=== PATIENT | female | born 1940 | race Caucasian/White ===

== ENCOUNTER 2022-10-25 06:07 | Inpatient (IN) | payer OTHER ==
[~2022-10-25] VITALS: Ht 160 cm; Wt 60.0 kg
[~2022-10-25 06:07] MED LIST: ALL100T PO; ATOR-47 PO; CAR3125T OR; CLON0.1T PO; CYCL-837 PO; FENO134C PO; FURO1TAB33 PO; GABA300C10 PO; GLIP5TAB12 PO; HYDR-531 PO; LEVO75TA6 PO; MAGN400C2 PO; MELA5CAP PO; METR500T PO; NIFE1TAB30 PO; PROM25TA5 OR; PROM25TA5 PO; SACC1CAP3 PO; VIBE75TA PO; [UNRECOGNIZED DRUG - CODE] PO
[2022-10-25] MEDS ORDERED: MORPHINE SULF PF 5 MG/10 ML VIAL ONE (06:23)
[2022-10-25] MEDS ORDERED: KETOROLAC TROMETH 30 MG/ML 1ML VIAL ONE ×2 (06:23→07:10)
[2022-10-25] MEDS ORDERED: PREGABALIN CAPSULE 75 MG CAP PO ONE (06:30)
[2022-10-25] MEDS ORDERED: CELECOXIB 100 MG CAP PO ONE (06:30)
[2022-10-25] MEDS ORDERED: ACETAMINOPHEN IV 1000 MG/100ML (10MG/ML) IV ONE (06:30)
[2022-10-25] MEDS ORDERED: CELECOXIB 100 MG CAP ONE (06:30)
[2022-10-25] MEDS ORDERED: ceFAZolin 1GM/50ML 100 ML IV ONE (06:30)
[2022-10-25] MEDS ORDERED: ACETAMINOPHEN IV 100 ML IV ONE (06:30)
[2022-10-25] MEDS ORDERED: TRANEXAMIC ACID 20 ML ONE (06:31)
[2022-10-25] MEDS ORDERED: PREGABALIN CAPSULE 75 MG CAP ONE (06:31)
[2022-10-25] MEDS ORDERED: BUPIVACAINE 0.25% INJ 50ML VIAL ONE (06:31)
[2022-10-25] MEDS ORDERED: VANCOMYCIN HCL 1000 MG VL ONE (06:32)
[2022-10-25] MEDS ORDERED: EPINEPHrine HCL 1 MG/1 ML AMP ONE (06:55)
[2022-10-25] MEDS ORDERED: DexAMETHasone SOD PHOS 4 MG/1ML SDV INJ ONE (06:55)
[2022-10-25] MEDS ORDERED: BUPIVACAINE 0.5% P/F INJ 10 ML VIAL ONE (06:55)
[2022-10-25] MEDS ORDERED: LIDOCAINE 2% (LOCAL ANESTH.) PF 5ml SDV ONE (07:10)
[2022-10-25] MEDS ORDERED: KETAMINE HCL 10 ML ONE (07:10)
[2022-10-25] MEDS ORDERED: SODIUM CHLORIDE LOCK 10 ML ONE ×2 (07:10→07:29)
[2022-10-25] MEDS ORDERED: ONDANSETRON HCL 4 MG/2 ML VIAL ONE (07:10)
[2022-10-25] MEDS ORDERED: PROPOFOL 10 MG/ML 20 ML IV ONE ×2 (07:10→08:52)
[2022-10-25] MEDS ORDERED: DexAMETHasone SOD PHOS 10MG/1ML VIAL INJ ONE (07:10)
[2022-10-25] MEDS ORDERED: GLYCOPYRROLATE 0.2 MG/ML 1ML VIAL ONE (07:10)
[2022-10-25] MEDS ORDERED: PROMETHAZINE HCL PO PRN (09:00)
[2022-10-25] MEDS ORDERED: MORPHINE SULFATE INJ 2 MG/ml SYRG IV PRN (09:15)
[2022-10-25] MEDS ORDERED: NITROGLYCERIN 0.4 MG SL TAB SL PRN (09:15)
[2022-10-25] MEDS ORDERED: ONDANSETRON HCL 4 MG/2 ML VIAL IV PRN ×2 (09:15→09:45)
[2022-10-25] MEDS ORDERED: LIDOCAINE 1% (LOCAL ANESTH.) PF 5ml SDV ONE (09:25)
[2022-10-25] MEDS ORDERED: FLUMAZENIL 0.1 MG/ML INJ 10ML MDV IV PRN (09:45)
[2022-10-25] MEDS ORDERED: hydrALAZINE HCL 20 MG/ML VL IV PRN (09:45)
[2022-10-25] MEDS ORDERED: HYDROmorphone HCL 2 MG/ML VL/or syr IV PRN (09:45)
[2022-10-25] MEDS ORDERED: ePHEDrine SULFATE 50 MG/ML AMP IV PRN (09:45)
[2022-10-25] MEDS ORDERED: LABETALOL HCL 5 MG/ML 4ML SYRINGE IV PRN (09:45)
[2022-10-25] MEDS ORDERED: NALOXONE HCL 0.4 MG/ML VIAL IV PRN (09:45)
[2022-10-25] MEDS ORDERED: fentaNYL CITRATE 100 MCG/2 ML VL IV PRN (09:45)
[2022-10-25] MEDS ORDERED: LEVOTHYROXINE SODIUM 25 MCG TAB PO SCH (10:00)
[2022-10-25] MEDS ORDERED: ATORVASTATIN 20 MG TAB PO SCH (10:00)
[2022-10-25] MEDS: FENOFIBRATE PO SCH (10:00)
[2022-10-25] MEDS ORDERED: HYDROmorphone HCL 2 MG/ML VL/or syr ONE (10:00)
[2022-10-25] MEDS ORDERED: HYDROmorphone HCL 2 MG/ML VL/or syr IV ONE ×4 (10:06→10:36)
[2022-10-25] MEDS ORDERED: DEXTROSE (50%) 50ML SYRG IV PRN (12:15)
[2022-10-25 13:00] VITALS: BP 164/69
[2022-10-25] MEDS: HYDROmorphone HCL 2 MG/ML VL/or syr IV PRN (14:00)
[2022-10-25] MEDS: SODIUM CHLOR 0.9% PF (SALINE LOCK) 10ML VIAL/SYR IV SCH ×2 (14:21→20:50)
[2022-10-25 17:00] VITALS: BP 165/83
[2022-10-25] MEDS: InsuLIN REG 1unit/0.01ml Soln (100units/ml) SC SCH ×2 (17:00→20:53)
[2022-10-25] MEDS: ACCU-CHEK COMFORT CURVE STRIP VI SCH ×2 (17:24→20:52)
[2022-10-25] MEDS: cloNIDine HCL 0.1 MG TAB PO SCH (20:39)
[2022-10-25] MEDS: DOCUSATE SOD 100 MG CAP PO SCH (20:40)
[2022-10-25] MEDS: CYCLOBENZAPRINE HCL 10 MG TAB PO SCH (20:40)
[2022-10-25] MEDS: GABAPENTIN 300 MG CAP PO SCH (20:41)
[2022-10-25] MEDS: ceFAZolin 1GM/50ML 50 ML IV SCH ×2 (20:55→21:15)
[2022-10-25] MEDS: LACTATED RINGER'S 1,000 ML IV SCH (21:18)
[2022-10-25 21:38] VITALS: BP 180/85
[2022-10-25 21:44] VITALS: BP 167/74
[2022-10-25] MEDS ORDERED: CARVEDILOL 3.125 MG TAB PO ONE (22:45)
[2022-10-26] MEDS: ceFAZolin 1GM/50ML 50 ML IV SCH ×2 (03:22→10:07)
[2022-10-26 05:00] VITALS: BP 158/71
[2022-10-26] MEDS: SODIUM CHLOR 0.9% PF (SALINE LOCK) 10ML VIAL/SYR IV SCH ×3 (06:12→22:27)
[2022-10-26 06:14] LABS: Hematocrit 31.9 % (36.0-46.0); Hemoglobin 10.5 g/dL (12.2-16.2)
[2022-10-26] MEDS: ACCU-CHEK COMFORT CURVE STRIP VI SCH ×4 (06:28→22:26)
[2022-10-26] MEDS: LACTATED RINGER'S 1,000 ML IV SCH ×2 (06:28→15:15)
[2022-10-26] MEDS: InsuLIN REG 1unit/0.01ml Soln (100units/ml) SC SCH ×4 (06:28→22:00)
[2022-10-26 06:49] LABS: Albumin 3.2 g/dL (3.4-5.0); Calcium 8.7 mg/dL (8.5-10.1)
[2022-10-26 06:57] LABS: BUN/Creatinine Ratio 24.7; Bilirubin, Total 0.3 mg/dL (0.2-1.0); Total Protein 6.1 g/dL (6.4-8.2)
[2022-10-26 07:17] LABS: Potassium 5.7 mmol/L (3.5-5.1)
[2022-10-26] MEDS ORDERED: SODIUM ZIRCONIUM CYCL 10 GM PAK PO ONE ×2 (07:45)
[2022-10-26] MEDS ORDERED: CALCIUM GLUC 1,000mg/50ml-NS 50 ML IV ONE (07:45)
[2022-10-26] MEDS ORDERED: InsuLIN REG 1unit/0.01ml Soln (100units/ml) IV ONE (07:45)
[2022-10-26 08:00] VITALS: BP 99/53
[2022-10-26] MEDS ORDERED: DEXTROSE 10% 250 ML Bag IV ONE ×2 (08:00)
[2022-10-26 08:47] VITALS: BP 159/75
[2022-10-26] MEDS: FENOFIBRATE PO SCH (10:00)
[2022-10-26] MEDS: HYDROmorphone HCL 2 MG/ML VL/or syr IV PRN ×2 (10:04→14:55)
[2022-10-26] MEDS: CARVEDILOL 3.125 MG TAB PO SCH (11:38)
[2022-10-26] MEDS: MAGNESIUM OXIDE 400 MG TAB PO SCH (11:39)
[2022-10-26] MEDS: FUROSEMIDE 20 MG TAB PO SCH (11:39)
[2022-10-26] MEDS: cloNIDine HCL 0.1 MG TAB PO SCH ×2 (11:40→21:30)
[2022-10-26] MEDS: ENOXAPARIN SOD 40 MG/0.4 ML SYRINGE SC SCH (11:40)
[2022-10-26] MEDS: NIFEdipine ER 30 MG TAB PO SCH (11:40)
[2022-10-26] MEDS: CYCLOBENZAPRINE HCL 10 MG TAB PO SCH ×2 (11:41→21:30)
[2022-10-26] MEDS: GABAPENTIN 300 MG CAP PO SCH ×2 (11:41→21:29)
[2022-10-26] MEDS: DOCUSATE SOD 100 MG CAP PO SCH ×2 (11:41→21:29)
[2022-10-26] MEDS: LEVOTHYROXINE SODIUM 25 MCG TAB PO SCH (11:42)
[2022-10-26 12:16] LABS: Calcium 8.6 mg/dL (8.5-10.1); Potassium 4.7 mmol/L (3.5-5.1)
[2022-10-26 13:37] VITALS: BP 171/62
[2022-10-26 17:35] VITALS: BP 140/53
[2022-10-26] MEDS: HYDROcodone-ACET 10/325MG TAB PO PRN (18:21)
[2022-10-26] MEDS ORDERED: ATORVASTATIN 20 MG TAB PO SCH (20:00)
[2022-10-27] MEDS: LACTATED RINGER'S 1,000 ML IV SCH ×2 (01:15→11:15)
[2022-10-27] MEDS: SODIUM CHLOR 0.9% PF (SALINE LOCK) 10ML VIAL/SYR IV SCH ×2 (05:02→13:44)
[2022-10-27] MEDS: HYDROcodone-ACET 10/325MG TAB PO PRN ×2 (05:02→09:56)
[2022-10-27 05:35] VITALS: BP 127/63
[2022-10-27] MEDS: InsuLIN REG 1unit/0.01ml Soln (100units/ml) SC SCH ×3 (06:17→17:00)
[2022-10-27] MEDS: ACCU-CHEK COMFORT CURVE STRIP VI SCH ×3 (06:17→17:06)
[2022-10-27 06:27] LABS: Hematocrit 26.4 % (36.0-46.0); Hemoglobin 8.8 g/dL (12.2-16.2)
[2022-10-27 09:00] VITALS: BP 131/68
[2022-10-27] MEDS: FENOFIBRATE PO SCH (09:36)
[2022-10-27] MEDS: CYCLOBENZAPRINE HCL 10 MG TAB PO SCH (09:48)
[2022-10-27] MEDS: DOCUSATE SOD 100 MG CAP PO SCH (09:48)
[2022-10-27] MEDS: GABAPENTIN 300 MG CAP PO SCH (09:49)
[2022-10-27] MEDS: NIFEdipine ER 30 MG TAB PO SCH (09:50)
[2022-10-27] MEDS: CARVEDILOL 3.125 MG TAB PO SCH (09:52)
[2022-10-27] MEDS: MAGNESIUM OXIDE 400 MG TAB PO SCH (09:52)
[2022-10-27] MEDS: LEVOTHYROXINE SODIUM 25 MCG TAB PO SCH (09:53)
[2022-10-27] MEDS: cloNIDine HCL 0.1 MG TAB PO SCH (09:54)
[2022-10-27] MEDS: FUROSEMIDE 20 MG TAB PO SCH (09:54)
[2022-10-27] MEDS: ENOXAPARIN SOD 40 MG/0.4 ML SYRINGE SC SCH (09:56)
[2022-10-27 13:00] VITALS: BP 106/68
[2022-10-27 14:23] VITALS: BP 151/65
[2022-10-27 16:35] VITALS: BP 140/66
== END 2022-10-27 18:20 | disposition home health service (06) | DRG 470 ==
LOC: SUR 06:07 → OVERFLOW 09:05 → WEST WING 11:05
PROVIDERS: ADMIT Orthopaedic Surgery Adult Reconstructive Orthopaedic Surgery; ATTEND Orthopaedic Surgery Adult Reconstructive Orthopaedic Surgery
PROC: 0SRC069 Replacement of Right Knee Joint with Oxidized Zirconium on Polyethylene Synthetic Substitute, Cemented, Open Approach (ICD-10-PCS; principal; 2022-10-25 07:30)
DX: M17.11 Unilateral primary osteoarthritis, right knee (principal); E03.9 Hypothyroidism, unspecified; E11.42 Type 2 diabetes mellitus with diabetic polyneuropathy; E78.5 Hyperlipidemia, unspecified; G89.29 Other chronic pain; Z20.822 Contact with and (suspected) exposure to COVID-19; I10 Essential (primary) hypertension; Z80.52 Family history of malignant neoplasm of bladder; Z82.0 Family history of epilepsy and other diseases of the nervous system; Z82.3 Family history of stroke; Z82.49 Family history of ischemic heart disease and other diseases of the circulatory system; Z83.3 Family history of diabetes mellitus
CPT/HCPCS: 36415; 73562; 80048; 80053; 82962; 85014; 85018; 86850; 86900; 86901; 87426; 97110; 97116; 97163; 97530; C1713; C1776; G0378; J0131; J0171; J0690; J1100; J1815; J1885; J2001; J2405; J2704; J3490

== ENCOUNTER 2023-05-23 08:13 | Observation (INO) | payer OTHER ==
[~2023-05-23] VITALS: Ht 160 cm; Wt 74.5 kg
[2023-05-23] VITALS (14 sets, daily range): BP systolic 83–127; BP diastolic 44–72; PULSE 63–93; RESP 16–44; TEMP 97.6–98.5; O2SAT 93–100
[~2023-05-23 08:13] MED LIST changes: -FENO134C PO; +GABA-1250 PO; -GABA300C10 PO; -GLIP5TAB12 PO; -METR500T PO; +PROM25TA10 OR; -PROM25TA5 OR; -PROM25TA5 PO; -VIBE75TA PO; +[UNRECOGNIZED DRUG - CODE] PO; -[UNRECOGNIZED DRUG - CODE] PO
[2023-05-23] MEDS ORDERED: VANCOMYCIN HCL 1000 MG VL ONE (08:34)
[2023-05-23] MEDS ORDERED: BUPIVACAINE 0.25% INJ 50ML VIAL ONE (08:35)
[2023-05-23] MEDS ORDERED: TRANEXAMIC ACID 20 ML ONE (08:35)
[2023-05-23] MEDS ORDERED: ceFAZolin 1GM/50ML 100 ML IV ONE (08:53)
[2023-05-23] MEDS ORDERED: TETRACAINE 1% INJ 2 ML VIAL IJ ONE (09:06)
[2023-05-23] MEDS ORDERED: CELECOXIB 100 MG CAP ONE (09:07)
[2023-05-23] MEDS ORDERED: ACETAMINOPHEN IV 100 ML IV ONE (09:07)
[2023-05-23] MEDS ORDERED: PREGABALIN CAPSULE 75 MG CAP ONE ×2 (09:07→11:52)
[2023-05-23] MEDS ORDERED: MORPHINE SULF PF 5 MG/10 ML VIAL ONE (09:08)
[2023-05-23] MEDS ORDERED: fentaNYL CITRATE 100 MCG/2 ML VL ONE (09:09)
[2023-05-23] MEDS ORDERED: MIDAZOLAM HCL 2MG/2ML 2ml VIAL (1mg/ml) ONE (09:09)
[2023-05-23] MEDS ORDERED: ONDANSETRON HCL 4 MG/2 ML VIAL IV PRN ×2 (09:45→10:45)
[2023-05-23] MEDS ORDERED: MIDAZOLAM HCL 2MG/2ML 2ml VIAL (1mg/ml) IV PRN (09:45)
[2023-05-23] MEDS ORDERED: ePHEDrine SULFATE 50 MG/ML AMP IV PRN (09:45)
[2023-05-23] MEDS ORDERED: HYDROmorphone HCL 2 MG/ML VL/or syr IV PRN ×2 (09:45→10:45)
[2023-05-23] MEDS ORDERED: NALOXONE HCL 0.4 MG/ML VIAL IV PRN (09:45)
[2023-05-23] MEDS ORDERED: LABETALOL HCL 5 MG/ML 4ML SYRINGE IV PRN (09:45)
[2023-05-23] MEDS ORDERED: DexAMETHasone SOD PHOS 10MG/1ML VIAL INJ IV PRN (09:45)
[2023-05-23] MEDS ORDERED: DexAMETHasone SOD PHOS 10MG/1ML VIAL INJ ONE (09:50)
[2023-05-23] MEDS ORDERED: DexAMETHasone SOD PHOS 4 MG/1ML SDV INJ ONE (10:42)
[2023-05-23] MEDS ORDERED: PROMETHAZINE HCL 25 MG PO PRN (10:45)
[2023-05-23] MEDS ORDERED: MORPHINE SULFATE INJ 2 MG/ml SYRG IV PRN (10:45)
[2023-05-23] MEDS ORDERED: LACTATED RINGER'S 1,000 ML IV SCH (10:45)
[2023-05-23] MEDS ORDERED: NITROGLYCERIN 0.4 MG SL TAB SL PRN (10:45)
[2023-05-23] MEDS ORDERED: HYDROcodone-ACET 10/325MG TAB PO PRN (10:45)
[2023-05-23] MEDS: ceFAZolin 1GM/50ML 50 ML IV SCH ×3 (11:00→22:42)
[2023-05-23] MEDS: FLORASTOR (S. BOULARDII) 250 MG CAP PO SCH (17:49)
[2023-05-23] MEDS: SODIUM CHLOR 0.9% PF (SALINE LOCK) 10ML VIAL/SYR IV SCH ×2 (17:50→22:00)
[2023-05-23] MEDS ORDERED: PHENYLEPHRINE HCL 10 MG/ML VL IV ONE (18:42)
[2023-05-23] MEDS: CARVEDILOL 3.125 MG TAB PO SCH (22:00)
[2023-05-23] MEDS: cloNIDine HCL 0.1 MG TAB PO SCH (22:00)
[2023-05-23] MEDS: DOCUSATE SOD 100 MG CAP PO SCH (22:43)
[2023-05-23] MEDS: HYDROcodone-ACET 10/325MG TAB PO PRN (22:44)
[2023-05-23] MEDS: CYCLOBENZAPRINE HCL 10 MG TAB PO SCH (22:55)
[2023-05-24] VITALS (15 sets, daily range): BP systolic 103–163; BP diastolic 58–82; PULSE 69–103; RESP 16–20; TEMP 97.5–98.1; O2SAT 96–100
[2023-05-24] MEDS: SODIUM CHLOR 0.9% PF (SALINE LOCK) 10ML VIAL/SYR IV SCH ×2 (06:02→16:47)
[2023-05-24] MEDS: FLORASTOR (S. BOULARDII) 250 MG CAP PO SCH ×2 (06:23→18:41)
[2023-05-24] MEDS ORDERED: LEVOTHYROXINE SODIUM 50 MCG TAB PO SCH (07:00)
[2023-05-24 07:22] LABS: Chloride 107 mmol/L (98-107); Potassium 4.8 mmol/L (3.5-5.1); Sodium 137 mmol/L (136-145)
[2023-05-24 07:23] LABS: Anion Gap 6 (5-15); Carbon Dioxide 24 mmol/L (20-30)
[2023-05-24 07:24] LABS: Calcium 9.1 mg/dL (8.7-10.4)
[2023-05-24 07:29] LABS: Blood Urea Nitrogen 29 mg/dL (9-23); Glucose 137 mg/dL (74-106)
[2023-05-24 08:12] LABS: Basophils # (auto) 0 10 ^3/uL (0-0.2); Basophils % (auto) 0.2 % (0.0-2.0); Eosinophils # (auto) 0 10 ^3/uL (0-0.8); Hematocrit 28.4 % (36.0-46.0); Hemoglobin 9.1 g/dL (12.2-16.2); Lymphocytes # (auto) 0.8 10 ^3/uL (0.4-5.4); Lymphocytes % (auto) 6.1 % (10.0-50.0); Mean Corpuscular Hemoglobin 29.9 pg (28.0-32.0); Mean Corpuscular Hgb Conc. 32.1 g/dL (32.0-36.0); Mean Corpuscular Volume 93.1 fL (80.0-100.0); Monocytes # (auto) 0.8 10 ^3/uL (0-1.3); Monocytes % (auto) 5.7 % (0.0-12.0); Neutrophils # (auto) 11.9 10 ^3/uL (1.6-8.6); Nucleated Red Blood Cells % 0.1 %; Red Blood Cells 3.05 10^6/uL (4.0-5.20); Red Cell Distribution Width 16.5 % (11.8-14.3); White Blood Cell 13.6 10^3/uL (4.4-10.8)
[2023-05-24] MEDS: CARVEDILOL 3.125 MG TAB PO SCH (09:43)
[2023-05-24] MEDS: DOCUSATE SOD 100 MG CAP PO SCH (09:44)
[2023-05-24] MEDS: CYCLOBENZAPRINE HCL 10 MG TAB PO SCH (09:44)
[2023-05-24] MEDS: cloNIDine HCL 0.1 MG TAB PO SCH (09:45)
[2023-05-24] MEDS: HYDROcodone-ACET 10/325MG TAB PO PRN (09:46)
[2023-05-24] MEDS ORDERED: FUROSEMIDE 20 MG TAB PO SCH (10:00)
[2023-05-24] MEDS ORDERED: ENOXAPARIN SOD 40 MG/0.4 ML SYRINGE SC SCH (10:00)
[2023-05-24] MEDS ORDERED: MAGNESIUM OXIDE 400 MG TAB PO SCH (10:00)
[2023-05-24] MEDS ORDERED: ALLOPURINOL 100 MG TAB PO SCH (10:00)
[2023-05-24] MEDS ORDERED: GABAPENTIN 300 MG CAP PO SCH (10:00)
[2023-05-24] MEDS ORDERED: ATORVASTATIN 20 MG TAB PO SCH (10:00)
[2023-05-24] MEDS ORDERED: NIFEdipine ER 30 MG TAB PO SCH (10:00)
[2023-05-24] MEDS ORDERED: SODIUM CHLORIDE 0.9% 1,000 ML IV SCH (13:30)
[2023-05-24] MEDS ORDERED: MAGN400T40 PO (15:21)
[2023-05-24] MEDS ORDERED: LEVO750T40 PO (15:21)
[2023-05-24] MEDS ORDERED: PROM25TA10 PO (15:21)
[2023-05-24] MEDS ORDERED: FURO20TA3 PO (15:21)
[2023-05-24] MEDS ORDERED: ATOR-47 PO (15:21)
[2023-05-24] MEDS ORDERED: GABA-1250 PO (15:21)
[2023-05-24] MEDS ORDERED: CYCL-837 PO (15:21)
[2023-05-24] MEDS ORDERED: HYDR-4798 PO (15:21)
[2023-05-24] MEDS ORDERED: MELA3TAB27 PO (15:21)
[2023-05-24] MEDS ORDERED: CLON0.1T PO (15:21)
[2023-05-24] MEDS ORDERED: CARV3.1240 PO (15:21)
[2023-05-24] MEDS ORDERED: ALLO100T PO (15:21)
== END 2023-05-24 18:43 | disposition home health service (06) ==
LOC: SUR 08:13 → TELE 10:41 → TELE-WESTW 16:05
PROVIDERS: ADMIT Orthopaedic Surgery Adult Reconstructive Orthopaedic Surgery; ATTEND Orthopaedic Surgery
DX: M17.0 Bilateral primary osteoarthritis of knee (principal); M21.062 Valgus deformity, not elsewhere classified, left knee; M24.562 Contracture, left knee; I13.10 Hypertensive heart and chronic kidney disease without heart failure, with stage 1 through stage 4 chronic kidney disease, or unspecified chronic kidney disease; E11.22 Type 2 diabetes mellitus with diabetic chronic kidney disease; N18.30 Chronic kidney disease, stage 3 unspecified; E11.42 Type 2 diabetes mellitus with diabetic polyneuropathy; E03.9 Hypothyroidism, unspecified; E78.00 Pure hypercholesterolemia, unspecified; Z96.652 Presence of left artificial knee joint; Z79.899 Other long term (current) drug therapy
CPT/HCPCS: 20985; 27447; 36415; 73562; 80048; 85025; 86850; 86900; 86901; 96365; 96366; 96372; 97163; C1776; G0378; J0131; J0690; J1100; J1650; J2250; J2270; J2405; J3010; J3370; J3490

== ENCOUNTER → 2024-05-17 | Outpatient (CLI) | payer OTHER ==
[~2024-05-17] MED LIST changes: -ALL100T PO; +ALLO100T PO; -CAR3125T OR; +CARV3.1240 PO; -FURO1TAB33 PO; +FURO20TA3 PO; +HYDR-4798 PO; -HYDR-531 PO; +LEVO750T40 PO; -LEVO75TA6 PO; -MAGN400C2 PO; +MAGN400T40 PO; +MELA3TAB27 PO; -MELA5CAP PO; -NIFE1TAB30 PO; -PROM25TA10 OR; +PROM25TA10 PO; -[UNRECOGNIZED DRUG - CODE] PO
== END | disposition home or self-care (01) ==
LOC: XYW 07:48
PROVIDERS: ATTEND Orthopaedic Surgery Adult Reconstructive Orthopaedic Surgery
DX: T84.84XD Pain due to internal orthopedic prosthetic devices, implants and grafts, subsequent encounter (principal); Y71.2 Prosthetic and other implants, materials and accessory cardiovascular devices associated with adverse incidents; Y92.89 Other specified places as the place of occurrence of the external cause
CPT/HCPCS: 78315; A9503

== ENCOUNTER 2024-05-28 09:54 | Inpatient (IN) | payer OTHER ==
[~2024-05-28] VITALS: Ht 160 cm; Wt 73.3 kg
[2024-05-28] MEDS: ceFAZolin 2 GM/D5W100ml 100 ML IV ONE (10:06)
[2024-05-28] MEDS: TOBRAMYCIN IV ONE (10:30)
[2024-05-28] MEDS: SODIUM CHL 0.9% IV ONE (10:30)
[2024-05-28] MEDS: VANCOMYCIN HCL 1000 MG VL ONE (10:33)
[2024-05-28] MEDS ORDERED: MIDAZOLAM HCL 2MG/2ML 2ml VIAL (1mg/ml) ONE (10:34)
[2024-05-28] MEDS ORDERED: fentaNYL CITRATE 100 MCG/2 ML VL ONE (10:34)
[2024-05-28] MEDS: CEFEPIME 1GM/ 50ML 50 ML IV ONE (10:53)
[2024-05-28] MEDS: BUPIVACAINE HCL 0 ML ONE (10:57)
[2024-05-28] MEDS ORDERED: MORPHINE SULFATE INJ 2 MG/ml SYRG IV PRN (11:00)
[2024-05-28] MEDS ORDERED: NITROGLYCERIN 0.4 MG SL TAB SL PRN (11:00)
[2024-05-28] MEDS: TRANEXAMIC ACID 20 ML ONE (11:20)
[2024-05-28] MEDS: KETOROLAC TROMETH 30 MG/ML 1ML VIAL ONE (11:54)
[2024-05-28] MEDS: MORPHINE SULF PF 5 MG/10 ML VIAL ONE (11:54)
[2024-05-28] MEDS: BUPIVACAINE HCL 0.25% P/F 10 ML VIAL ONE (11:54)
[2024-05-28] MEDS: LACTATED RINGER'S 1,000 ML IV SCH (12:30)
[2024-05-28] MEDS ORDERED: HYDROmorphone HCL 2 MG/ML VL/or syr IV PRN (12:30)
[2024-05-28] MEDS: ACETAMINOPHEN IV 1000 MG/100ML (10MG/ML) IV ONE (13:24)
[2024-05-28] MEDS ORDERED: ceFAZolin 1GM/50ML 50 ML IV SCH (14:00)
[2024-05-28] MEDS: MORPHINE SULFATE INJ 2 MG/ml SYRG IV PRN (14:18)
[2024-05-28] MEDS: MORPHINE SULFATE INJ 2 MG/ml SYRG ONE (14:21)
[2024-05-28 16:49] VITALS: BP 143/67; PULSE 72; RESP 16; TEMP 97.1; O2SAT 96
[2024-05-28 17:00] VITALS: BP 143/67; PULSE 66; RESP 17; TEMP 97.1; O2SAT 96
[2024-05-28] MEDS: ONDANSETRON HCL 4 MG/2 ML VIAL IV ONE (17:46)
[2024-05-28] MEDS: ATORVASTATIN 20 MG TAB PO SCH (18:17)
[2024-05-28] MEDS: CYCLOBENZAPRINE HCL 10 MG TAB PO SCH (18:17)
[2024-05-28] MEDS: ceFAZolin 1GM/50ML 50 ML IV SCH (18:19)
[2024-05-28] MEDS: MELATONIN 5 MG TAB PO SCH (18:19)
[2024-05-28 20:00] VITALS: PULSE 73; RESP 18; O2SAT 92
[2024-05-28 21:00] VITALS: BP 141/66; PULSE 73; RESP 18; TEMP 97.7; O2SAT 100
[2024-05-28] MEDS: GABAPENTIN 300 MG CAP PO SCH (21:17)
[2024-05-28] MEDS: cloNIDine HCL 0.1 MG TAB PO SCH (21:18)
[2024-05-28] MEDS: HYDROcodone-ACET 10/325MG TAB PO PRN (21:19)
[2024-05-28] MEDS: CEFEPIME 1GM/ 50ML 50 ML IV SCH (21:22)
[2024-05-29] VITALS (7 sets, daily range): BP systolic 133–174; BP diastolic 56–77; PULSE 71–95; RESP 17–20; TEMP 97.7–99; O2SAT 94–98
[2024-05-29] MEDS: HYDROmorphone HCL 2 MG/ML VL/or syr IV PRN (01:45)
[2024-05-29 07:41] LABS: Hematocrit 31.4 % (36.0-46.0); Hemoglobin 10.2 g/dL (12.2-16.2)
[2024-05-29] MEDS: ENOXAPARIN SOD 40 MG/0.4 ML SYRINGE SC SCH (09:25)
[2024-05-29] MEDS: FUROSEMIDE 20 MG TAB PO SCH (09:26)
[2024-05-29] MEDS: CARVEDILOL 3.125 MG TAB PO SCH ×2 (09:27→22:14)
[2024-05-29] MEDS: PROMETHAZINE HCL 25 MG PO SCH (10:00)
[2024-05-29 13:53] LABS: Albumin 4.1 g/dL (3.2-4.8); Alkaline Phosphatase 131 U/L (46-116); Anion Gap 10 (5-15); Aspartate Aminotransferase 18 U/L (13-40); BUN/Creatinine Ratio 14.6 (10.0-20.0); Blood Urea Nitrogen 22 mg/dL (9-23); Calcium 10.6 mg/dL (8.7-10.4); Carbon Dioxide 22 mmol/L (20-31); Chloride 106 mmol/L (98-107); Glucose 101 mg/dL (74-106); Potassium 4.3 mmol/L (3.5-5.1); Sodium 138 mmol/L (136-145)
[2024-05-29 13:54] LABS: Bilirubin, Total 0.4 mg/dL (0.2-1.0); Total Protein 6.6 g/dL (5.7-8.2)
[2024-05-29 14:04] LABS: Alanine Aminotransferase < 9 U/L (7-40)
[2024-05-30] VITALS (7 sets, daily range): BP systolic 148–177; BP diastolic 56–116; PULSE 73–86; RESP 15–20; TEMP 97.6–98.5; O2SAT 94–97
[2024-05-30 08:31] LABS: Basophils # (auto) 0 10 ^3/uL (0-0.2); Basophils % (auto) 0.3 % (0.0-2.0); Eosinophils # (auto) 0.1 10 ^3/uL (0-0.8); Eosinophils % (auto) 0.8 % (0.0-7.0); Hematocrit 29.6 % (36.0-46.0); Hemoglobin 9.6 g/dL (12.2-16.2); Lymphocytes # (auto) 1.1 10 ^3/uL (0.4-5.4); Lymphocytes % (auto) 9.4 % (10.0-50.0); Mean Corpuscular Hemoglobin 27.6 pg (28.0-32.0); Mean Corpuscular Hgb Conc. 32.5 g/dL (32.0-36.0); Mean Corpuscular Volume 84.8 fL (80.0-100.0); Monocytes # (auto) 1.2 10 ^3/uL (0-1.3); Monocytes % (auto) 10.8 % (0.0-12.0); Neutrophils # (auto) 8.9 10 ^3/uL (1.6-8.6); Neutrophils % (auto) 78.7 % (37.0-80.0); Platelet Count (auto) 294 10^3/uL (140-450); Red Blood Cells 3.49 10^6/uL (4.0-5.20); White Blood Cell 11.3 10^3/uL (4.4-10.8)
[2024-05-30 08:35] LABS: Chloride 105 mmol/L (98-107); Sodium 137 mmol/L (136-145)
[2024-05-30 08:36] LABS: Anion Gap 9 (5-15); Carbon Dioxide 23 mmol/L (20-31)
[2024-05-30 08:37] LABS: Calcium 10.3 mg/dL (8.7-10.4)
[2024-05-30 08:42] LABS: BUN/Creatinine Ratio 15.5 (10.0-20.0); Blood Urea Nitrogen 22 mg/dL (9-23); Glucose 91 mg/dL (74-106)
[2024-05-30] MEDS: GABAPENTIN 300 MG CAP PO SCH (09:27)
[2024-05-30] MEDS: hydrALAZINE HCL 20 MG/ML VL IV PRN (18:13)
[2024-05-31] VITALS (7 sets, daily range): BP systolic 114–149; BP diastolic 39–64; PULSE 70–78; RESP 17–21; TEMP 97.6–98.6; O2SAT 94–96
[2024-05-31 06:55] LABS: Hematocrit 28.6 % (36.0-46.0); Hemoglobin 9.5 g/dL (12.2-16.2)
[2024-05-31 10:46] LABS: INR 1.1 (0.9-1.15); Partial Thromboplastin Time 32.2 SEC (24.5-34.5); Prothrombin Time 11.6 sec (9.3-11.8)
[2024-05-31] MEDS: ceFAZolin 1GM/50ML 50 ML IV SCH (11:56)
[2024-05-31] MEDS ORDERED: levoFLOXacin 500MG 100 ML IV ONE (14:30)
[2024-05-31] MEDS ORDERED: LIDOCAINE 1% (LOCAL ANESTH.) PF 5ml SDV ID ONE (18:30)
[2024-05-31] MEDS: MEROPENEM 2GM/ 250ML 250 ML IV SCH (18:36)
[2024-05-31] MEDS: SODIUM CHLOR 0.9% PF (SALINE LOCK) 10ML VIAL/SYR IV SCH (22:36)
[2024-06-01 01:00] VITALS: BP 120/53; PULSE 72; RESP 17; TEMP 97.5; O2SAT 94
[2024-06-01 05:00] VITALS: BP 164/59; PULSE 67; RESP 20; TEMP 97.6; O2SAT 98
[2024-06-01 08:00] VITALS: PULSE 71; RESP 16; O2SAT 97
[2024-06-01 09:00] VITALS: BP 132/54; PULSE 67; RESP 16; TEMP 97.8; O2SAT 97
[2024-06-01] MEDS ORDERED: levoFLOXacin 500MG 100 ML IV SCH (10:00)
[2024-06-01] MEDS ORDERED: levoFLOXacin 250MG 50 ML IV SCH (10:00)
[2024-06-01 13:00] VITALS: BP 116/60; PULSE 68; RESP 18; TEMP 97.4; O2SAT 98
[2024-06-01 13:08] VITALS: BP 132/54; PULSE 71; TEMP 36.6
== END 2024-06-01 18:00 | disposition home health service (06) | DRG 487 ==
LOC: SUR 09:54 → OVERFLOW 10:56 → TELE-CENTR 16:43 → CENTRAL 05-29 00:40
PROVIDERS: ADMIT Orthopaedic Surgery Adult Reconstructive Orthopaedic Surgery; ATTEND Orthopaedic Surgery Adult Reconstructive Orthopaedic Surgery
PROC: 0SBD0ZZ Excision of Left Knee Joint, Open Approach (ICD-10-PCS; principal; 2024-05-28 10:50)
PROC: 02HV33Z Insertion of Infusion Device into Superior Vena Cava, Percutaneous Approach (ICD-10-PCS; 2024-05-31)
PROC: B548ZZA Ultrasonography of Superior Vena Cava, Guidance (ICD-10-PCS; 2024-05-31)
DX: T84.54XA Infection and inflammatory reaction due to internal left knee prosthesis, initial encounter (principal); E03.9 Hypothyroidism, unspecified; B96.5 Pseudomonas (aeruginosa) (mallei) (pseudomallei) as the cause of diseases classified elsewhere; E78.00 Pure hypercholesterolemia, unspecified; I10 Essential (primary) hypertension; G62.9 Polyneuropathy, unspecified; Y83.1 Surgical operation with implant of artificial internal device as the cause of abnormal reaction of the patient, or of later complication, without mention of misadventure at the time of the procedure; Z82.3 Family history of stroke; Z82.0 Family history of epilepsy and other diseases of the nervous system; Z82.49 Family history of ischemic heart disease and other diseases of the circulatory system; Z80.52 Family history of malignant neoplasm of bladder; Z83.3 Family history of diabetes mellitus; Z88.5 Allergy status to narcotic agent; Z91.040 Latex allergy status
CPT/HCPCS: 36415; 36569; 76937; 80048; 80053; 85014; 85018; 85025; 85610; 85730; 87070; 87075; 87077; 87186; 87205; 97110; 97116; 97163; 97530; C1713; G0378; J0131; J1885; J2250; J2405; J3490

== ENCOUNTER 2025-06-26 11:12 | Emergency (ER) | payer MEDICAID, OTHER ==
[~2025-06-26] VITALS: Ht 160 cm; Wt 57.0 kg
[~2025-06-26 11:12] MED LIST changes: -LEVO750T40 PO
[2025-06-26 11:40] VITALS: PULSE 66; RESP 16; O2SAT 95
--- NOTE | 2025-06-26 11:45 | ED.PDOC ---
History of Present Illness HPI Comments 84-year-old female who comes in with chief complaint of left hip pain. The patient states that she fell approximately five days ago. She states that she has been trying to ambulate with a cane but the pain has worsened so she called 911 and was transported to our facility. She initially tripped over her sis ter's oxygen tubing. When the paramedics arrived, the patient was transported with 100 mics of fentanyl as well as 4 mg of Zofran IV push. The patient did receive some pain relief. The patient denies any chest pain or shortness for breath. There was no sign of any head trauma. The patient denies being on any blood thinners. Chief Complaint: Fall Injury Time Seen by MD: 11:16 Reviewed Notes: Nurses Notes, Information Systems Analyst Notes, Medications, Allergies (Allergic to codeine and latex) Allergies: Coded Allergies: Codeine (Verified Allergy, Unknown, 05/23/23) Latex (Verified Allergy, Unknown, 05/23/23) Home Meds Active Scripts Yeast (S. Boulardii)(S. Cerevi (Probiotic) 250 Mg Cap, 250 MG PO BIDAC, #30 CAP Prov:MILLER AMADOR MD 07/13/17 Reported Medications Hydrocodone-Acetaminophen (Hydrocodone Bitartrate/AC 10-325 mg) 1 Tab Tab, 1 TAB PO DAILY, TAB 05/24/23 Melatonin (KP MELATONIN) 3 Mg Tab, 5 MG PO QPM, #30 TAB 2 Refills 05/24/23 Promethazine Hcl (Promethazine Hcl) 25 Mg Tab, 1 TAB PO DAILY, #20 TAB 05/24/23 Magnesium Oxide (MAGNESIUM OXIDE) 400 Mg Tab, 1 TAB PO DAILY, #30 TAB 5 Refills 05/24/23 Gabapentin (Gabapentin) 300 Mg Cap, 1 CAP PO BID, #90 CAP 5 Refills 05/24/23 Furosemide (Furosemide) 20 Mg Tab, 20 MG PO DAILY, MG 05/24/23 Cyclobenzaprine Hcl (Cyclobenzaprine Hcl) 5 Mg Tab, 1 TAB PO QPM, #30 TAB 05/24/23 Clonidine Hydrochloride (Clonidine Hcl) 0.1 Mg Tab, 0.1 MG PO BID, MG 05/24/23 Carvedilol (Carvedilol) 3.125 Mg Tab, 3.125 MG PO DAILY, MG 05/24/23 Atorvastatin Calcium (ATORVASTATIN CALCIUM) 80 Mg Tab, 1 TAB PO QPM, #30 TAB 5 Refills 05/24/23 Allopurinol (Allopurinol) 100 Mg Tab, 100 MG PO DAILY, MG 05/24/23 Information Source: Emergency Med Personnel Mode of Arrival: EMS Severity: Moderate Timing: Days (Fell five days ago) Duration: Since onset Prehospital treatment: Clinical Trial Leader, IVF, Pain Meds Associated signs and symptoms The patient is complaining of left hip pain Past Medical History PAST MEDICAL HISTORY: AFIB, Cancer (History of renal cancer), CHF, High Lipids, HTN, Thyroid Past Medical History (Other): Chronic back pain Surgical History: Cholecystectomy Surgical History (Other): Left nephrectomy, back surgery, cataract surgery PACKAGE DYER History: No Pertinent PACKAGE DYER History Family History Family History: Unknown Social History Smoker: Non-Smoker Alcohol: Denies ETOH Use Drugs: Denies Drug Use Lives In: Home Constitutional: denies: chills, diaphoresis, fatigue, fever, malaise, sweats, weakness, others EENTM: denies: blurred vision, double vision, ear bleeding, ear discharge, ear drainage, ear pain, ear ringing, eye pain, eye redness, hearing loss, mouth pain, mouth swelling, nasal discharge, nose bleeding, nose congestion, nose pain, photophobia, tearing, throat pain, throat swelling, voice changes, others Respiratory: denies: cough, hemoptysis, orthopnea, SOB at rest, shortness of breath, SOB with excertion, stridor, wheezing, others Cardiovascular: denies: chest pain, dizzy spells, diaphoresis, Dyspnea on exertion, edema, irregular heart beat, left arm pain, lightheadedness, palpitations, PND, syncope, others Gastrointestinal: denies: abdomen distended, abdominal pain, blood streaked bowels, constipated, diarrhea, dysphagia, difficulty swallowing, hematemesis, melena, nausea, poor appetite, poor fluid intake, rectal bleeding, rectal pain, vomiting, others Genitourinary: denies: abnormal vagina bleeding, burning, dyspareunia, dysuria, flank pain, frequency, hematuria, incontinence, pain, , vagina discharge, urgency, others Neurological: denies: dizziness, fainting, headache, left sided numbness, left sided weakness, numbness, paresthesia, pre-existing deficit, right sided numbness, right sided weakness, seizure, speech problems, tingling, tremors, weakness, others Musculoskeletal: reports: others (Left hip pain); denies: back pain, gout, joint pain, joint swelling, muscle pain, muscle stiffness, neck pain Integumetry: denies: bruises, change in color, change in hair/nails, dryness, laceration, lesions, lumps, rash, wounds, others Allergic/Immunocompromised: denies: Difficulty Healing, Frequent Infections, Hives, Itching, others Hematologic/Lymphatic: denies: anemia, blood clots, easy bleeding, easy bruising, swollen glands, others Endocrine: denies: excessive hunger, excessive sweating, excessive thirst, excessive urination, flushing, intolerance to cold, intolerance to heat, unexplained weight gain, unexplained weight loss, others Psychiatric: denies: anxiety, bipolar disorder, depression, hopeless, panic disorder, schizophrenia, sleepless, suicidal, others Physical Exam General Appearance: Mild Distress HEENT: Normal ENT Inspection, Pharynx Normal, TMs Normal Neck: Full Range of Motion, Non-Tender, Normal, Normal Inspection Respiratory: Chest Non-Tender, Lungs Clear, No Accessory Muscle Use, No Respiratory Distress, Normal Breath Sounds Cardiovascular: No Edema, No JVD, No Murmur, No Gallop, Normal Peripheral Pulses, Regular Rate/Rhythm Breast Exam: Deferred Gastrointestinal: No Organomegaly, Non Tender, No Pulsatile Mass, Normal Bowel Sounds, Soft Genitalia: Deferred Pelvic: Deferred Rectal: Deferred Extremities: No calf tenderness, Normal capillary refill, Normal inspection, Normal range of motion, No pedal edema, Tender (Tenderness to the left hip with decreased range of motion) Musculoskeletal : Apperance: Normal Neurologic: Alert, hearings reporter II-XII nml as Tested, Motor Weakness, Normal Affect, Normal Mood, No Sensory Deficits Cerebellar Function: Unable to Test Reflexes: Normal Skin: Dry, Normal Color, Warm Lymphatic: No Adenopathy Was a procedure done? Was a procedure done?: No Differential Dx Considerations may include: Fracture, strain, contusion, dislocation X-Ray, Labs, Meds, VS Vital Signs Date Time Temp Pulse Resp B/P (MAP) Pulse Ox O2 Delivery O2 Flow Rate FiO2 06/26/25 14:35 62 11 118/56 (76) 99 06/26/25 14:34 62 11 118/56 06/26/25 13:40 64 12 121/61 06/26/25 13:40 97.4 64 12 121/61 (81) 100 97.4 06/26/25 11:40 97.5 66 16 113/55 (74) 95 97.5 06/26/25 11:40 66 16 95 Room Air* 0 21 06/26/25 11:29 98.0 68 14 116/63 96 98.0 Lab Test 06/26/25 12:07 Range/Units White Blood Count 7.7 4.4-10.8 10^3/uL Red Blood Count 3.36 L 4.0-5.20 10^6/uL Hemoglobin 9.5 L 12.2-16.2 g/dL Hematocrit 29.8 L 36.0-46.0 % Mean Corpuscular Volume 88.7 80.0-100.0 fL Mean Corpuscular Hemoglobin 28.4 28.0-32.0 pg Mean Corpuscular Hemoglobin Concent 32.0 32.0-36.0 g/dL Red Cell Distribution Width 16.9 H 11.8-14.3 % Platelet Count 238 140-450 10^3/uL Mean Platelet Volume 8.3 6.9-10.8 fL Neutrophils (%) (Auto) 60.6 37.0-80.0 % Lymphocytes (%) (Auto) 21.2 10.0-50.0 % Monocytes (%) (Auto) 8.7 0.0-12.0 % Eosinophils (%) (Auto) 8.6 H 0.0-7.0 % Basophils (%) (Auto) 0.9 0.0-2.0 % Neutrophils # (Auto) 4.6 1.6-8.6 10 ^3/uL Lymphocytes # (Auto) 1.6 0.4-5.4 10 ^3/uL Monocytes # (Auto) 0.7 0-1.3 10 ^3/uL Eosinophils # (Auto) 0.7 0-0.8 10 ^3/uL Basophils # (Auto) 0.1 0-0.2 10 ^3/uL Nucleated Red Blood Cells 0.0 % Prothrombin Time 10.7 9.3-11.8 sec Prothrombin Time INR 1.01 0.9-1.15 Activated Partial Thromboplast Time 28.3 24.5-34.5 SEC Sodium Level 141 136-145 mmol/L Potassium Level 4.8 3.5-5.1 mmol/L Chloride Level 105 98-107 mmol/L Carbon Dioxide Level 24 20-31 mmol/L Anion Gap 12 5-15 Blood Urea Nitrogen 43 H 9-23 mg/dL Creatinine 2.30 H 0.550-1.02 mg/dL Glomerular Filtration Rate Calc 20 >90 mL/min BUN/Creatinine Ratio 18.7 10.0-20.0 Serum Glucose 86 74-106 mg/dL Calcium Level 9.1 8.7-10.4 mg/dL Current Medications Medications (Trade) Dose Ordered Sig/Kasandra Route Start Time Stop Time Status Last Admin Morphine Sulfate 2 mg ONCE ONCE IV 06/26/25 13:30 06/26/25 13:31 DC 06/26/25 13:40 Ondansetron HCl (Zofran) 4 mg ONCE ONCE IV 06/26/25 13:30 06/26/25 13:31 DC 06/26/25 13:40 Sodium Chloride 500 ml @ 150 mls/hr Q3H20M ONCE IV 06/26/25 14:00 06/26/25 17:19 06/26/25 15:31 The patient's CAT scan of the left hip shows: IMPRESSION: 1. No fracture or dislocation in the left hip. 2. Left hip osteoarthritis. 3. Colonic diverticulosis without acute diverticulitis. The CBC shows anemia with a hemoglobin of 9.5 and hematocrit of 29.8 At this time, the patient is unable to ambulate. We feel that the patient can not go home and may be transferred to either SNF or admitted to our facility. The hospitalist did come and see the patient and the patient is being transferred to a SNF Images Reviewed?: Images reviewed and evaluated by me Time of 1ST Reevaluation: 11:46 Reevaluation 1ST: Unchanged Patient Education/Counseling: Diagnosis, Treatment, Prognosis Family Education/Counseling: No Family Present SEPSIS Sepsis Screen Date sepsis recognized/suspect: Jun 26, 2025 Time Sepsis recognized/suspect: 1130 Recent Procedure: No On Antibiotic Therapy: No Respiratory Rate >20: No Heart Rate >90: No Temp<36 C (96.8 F) or >38.3 C: No SBP <90 or MAP <65 mmHG: No New Acute Mental Status Change: No Is the patient on CPAP, BIPAP,: No Physician Orders Urinalysis (06/26/25 11:22) Heplock Iv (06/26/25 11:22) Clinical Trial Leader (06/26/25 11:22) Blood Pressure (06/26/25 11:22) Electrocardigram (06/26/25 11:22) Ct L Hip With Out Contrast (06/26/25 11:22) Pt Request For Service (06/26/25 13:01) Sodium Chloride 0.9% (06/26/25 14:00) * Classified Ad Taker Consult (06/26/25 ) Discharge (06/26/25 14:16) Allopurinol Tablet (Zyloprim Tablet) (06/27/25 10:00) Carvedilol Tablet (Coreg Tablet) (06/26/25 15:00) Clonidine Hcl Tablet (Catapres Tablet) (06/26/25 15:00) Gabapentin Capsule (Neurontin Capsule) (06/26/25 15:00) Hydrocodone-Acet 10/325mg Tab ([place] 10/ (06/26/25 15:00) Vital Signs Date Time Temp Pulse Resp B/P (MAP) Pulse Ox O2 Delivery O2 Flow Rate FiO2 06/26/25 14:35 62 11 118/56 (76) 99 06/26/25 14:34 62 11 118/56 06/26/25 13:40 64 12 121/61 06/26/25 13:40 97.4 64 12 121/61 (81) 100 97.4 06/26/25 11:40 97.5 66 16 113/55 (74) 95 97.5 06/26/25 11:40 66 16 95 Room Air* 0 21 06/26/25 11:29 98.0 68 14 116/63 96 98.0 Laboratory Tests Test 06/26/25 12:07 White Blood Count 7.7 10^3/uL (4.4-10.8) Medications Medications Dose Ordered Sig/Kasandra Route Start Time Stop Time Status Last Admin Dose Admin Morphine Sulfate 2 mg ONCE ONCE IV 06/26/25 13:30 06/26/25 13:31 DC 06/26/25 13:40 Ondansetron HCl 4 mg ONCE ONCE IV 06/26/25 13:30 06/26/25 13:31 DC 06/26/25 13:40 Sodium Chloride 500 ml @ 150 mls/hr Q3H20M ONCE IV 06/26/25 14:00 06/26/25 17:19 06/26/25 15:31 Departure 1 Departure Time of Disposition: 12:54 Impression: Primary Impression: History of fall Additional Impression: Contusion of left hip Qualified Codes: S70.02XA - Contusion of left hip, initial encounter Disposition: 51 HOSPICE/MEDICAL FACILITY Condition: Fair Critical Care Note Critical Care Time?: No Stability Stability form required: No Heart Score Heart Score: Heart Score Response (Comments) Value History N/A 0 EKG N/A 0 Age N/A 0 Risk Factors N/A 0 Troponin N/A 0 Total 0 KENDALL EARL MD Jun 26, 2025 11:45
--- NOTE | 2025-06-26 12:23 | DVH ---
CLINICAL INDICATION: Fall. TECHNIQUE: Noncontrast CT of the left hip was performed. Sagittal and coronal reformatted images are provided. COMPARISON: None CT Dose: CTDI volume is 10.86 mGy. Dose-length product is 304.53 mGy*cm FINDINGS: No fracture or dislocation. There is left hip joint space narrowing. The soft tissues about the left hip are unremarkable. There is colonic diverticulosis without acute diverticulitis. IMPRESSION: 1. No fracture or dislocation in the left hip. 2. Left hip osteoarthritis. 3. Colonic diverticulosis without acute diverticulitis. All CT scans at this medical facility are performed using dose modulation techniques as appropriate to a performed exam including the following: Automated exposure control was utilized; adjustment of the MA and/or KV according to patient size; and use of iterative reconstruction technique.
[2025-06-26 12:45] LABS: Hematocrit 29.8 % (36.0-46.0); Hemoglobin 9.5 g/dL (12.2-16.2); Mean Corpuscular Hemoglobin 28.4 pg (28.0-32.0); Mean Corpuscular Volume 88.7 fL (80.0-100.0); Nucleated Red Blood Cells % 0.0 %
[2025-06-26 12:52] LABS: Chloride 105 mmol/L (98-107); Potassium 4.8 mmol/L (3.5-5.1); Sodium 141 mmol/L (136-145)
[2025-06-26 12:54] LABS: Anion Gap 12 (5-15); Calcium 9.1 mg/dL (8.7-10.4); Carbon Dioxide 24 mmol/L (20-31)
[2025-06-26 12:57] LABS: INR 1.01 (0.9-1.15); Partial Thromboplastin Time 28.3 SEC (24.5-34.5); Prothrombin Time 10.7 sec (9.3-11.8)
[2025-06-26 12:59] LABS: BUN/Creatinine Ratio 18.7 (10.0-20.0); Glucose 86 mg/dL (74-106)
[2025-06-26 13:01] LABS: Blood Urea Nitrogen 43 mg/dL (9-23)
[2025-06-26] MEDS: ONDANSETRON HCL 4 MG/2 ML VIAL IV ONE (13:40)
[2025-06-26] MEDS: MORPHINE SULFATE INJ 2 MG/ml SYRG IV ONE (13:40)
--- NOTE | 2025-06-26 14:17 | DVHINCON2 ---
Date Seen: Jun 26, 2025 Referring Physician ER physician. Reason for Consultation Left hip pain status post fall few days ago. History of Present Illness 84-year-old female with a known history of hypertension, congestive heart failure, AFib currently on Eliquis who had a fall few days ago. Patient is started having difficulty in walking. Patient is complaining of left hip pain eventually CT hip was done which shows no evidence of acute fracture. Patient is requesting to go to [facility] facility for pain management and physical therapy. Patient's denies any fevers chills nausea and vomiting diarrhea hematemesis hematochezia melena dysuria hematuria. Past Medical History Hypertension Congestive heart failure Chronic AFib History of renal cancer Past Surgical History Cholecystectomy Nephrectomy Family History: Cerebrovascular accident (CVA) G8 MOTHER Diabetes mellitus G8 MOTHER FH: bladder cancer G8 BROTHER Hypertension G8 MOTHER G8 FATHER G8 BROTHER G8 BROTHER G8 SISTER G8 SISTER Seizure disorder G8 MOTHER Allergies: Coded Allergies: Codeine (Verified Allergy, Unknown, 05/23/23) Latex (Verified Allergy, Unknown, 05/23/23) Home Meds Active Scripts Yeast (S. Boulardii)(S. Cerevi (Probiotic) 250 Mg Cap, 250 MG PO BIDAC, #30 CAP Prov:MILLER AMADOR MD 07/13/17 Reported Medications Hydrocodone-Acetaminophen (Hydrocodone Bitartrate/AC 10-325 mg) 1 Tab Tab, 1 TAB PO DAILY, TAB 05/24/23 Melatonin (KP MELATONIN) 3 Mg Tab, 5 MG PO QPM, #30 TAB 2 Refills 05/24/23 Promethazine Hcl (Promethazine Hcl) 25 Mg Tab, 1 TAB PO DAILY, #20 TAB 05/24/23 Magnesium Oxide (MAGNESIUM OXIDE) 400 Mg Tab, 1 TAB PO DAILY, #30 TAB 5 Refills 05/24/23 Gabapentin (Gabapentin) 300 Mg Cap, 1 CAP PO BID, #90 CAP 5 Refills 05/24/23 Furosemide (Furosemide) 20 Mg Tab, 20 MG PO DAILY, MG 05/24/23 Cyclobenzaprine Hcl (Cyclobenzaprine Hcl) 5 Mg Tab, 1 TAB PO QPM, #30 TAB 05/24/23 Clonidine Hydrochloride (Clonidine Hcl) 0.1 Mg Tab, 0.1 MG PO BID, MG 05/24/23 Carvedilol (Carvedilol) 3.125 Mg Tab, 3.125 MG PO DAILY, MG 05/24/23 Atorvastatin Calcium (ATORVASTATIN CALCIUM) 80 Mg Tab, 1 TAB PO QPM, #30 TAB 5 Refills 05/24/23 Allopurinol (Allopurinol) 100 Mg Tab, 100 MG PO DAILY, MG 05/24/23 Review of Systems 12 review of system are negative besides mentioned above. 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 Labs/Diagnostic Data Labs Test 06/26/25 12:07 Range/Units White Blood Count 7.7 4.4-10.8 10^3/uL Red Blood Count 3.36 L 4.0-5.20 10^6/uL Hemoglobin 9.5 L 12.2-16.2 g/dL Hematocrit 29.8 L 36.0-46.0 % Mean Corpuscular Volume 88.7 80.0-100.0 fL Mean Corpuscular Hemoglobin 28.4 28.0-32.0 pg Mean Corpuscular Hemoglobin Concent 32.0 32.0-36.0 g/dL Red Cell Distribution Width 16.9 H 11.8-14.3 % Platelet Count 238 140-450 10^3/uL Mean Platelet Volume 8.3 6.9-10.8 fL Neutrophils (%) (Auto) 60.6 37.0-80.0 % Lymphocytes (%) (Auto) 21.2 10.0-50.0 % Monocytes (%) (Auto) 8.7 0.0-12.0 % Eosinophils (%) (Auto) 8.6 H 0.0-7.0 % Basophils (%) (Auto) 0.9 0.0-2.0 % Neutrophils # (Auto) 4.6 1.6-8.6 10 ^3/uL Lymphocytes # (Auto) 1.6 0.4-5.4 10 ^3/uL Monocytes # (Auto) 0.7 0-1.3 10 ^3/uL Eosinophils # (Auto) 0.7 0-0.8 10 ^3/uL Basophils # (Auto) 0.1 0-0.2 10 ^3/uL Nucleated Red Blood Cells 0.0 % Prothrombin Time 10.7 9.3-11.8 sec Prothrombin Time INR 1.01 0.9-1.15 Activated Partial Thromboplast Time 28.3 24.5-34.5 SEC Sodium Level 141 136-145 mmol/L Potassium Level 4.8 3.5-5.1 mmol/L Chloride Level 105 98-107 mmol/L Carbon Dioxide Level 24 20-31 mmol/L Anion Gap 12 5-15 Blood Urea Nitrogen 43 H 9-23 mg/dL Creatinine 2.30 H 0.550-1.02 mg/dL Glomerular Filtration Rate Calc 20 >90 mL/min BUN/Creatinine Ratio 18.7 10.0-20.0 Serum Glucose 86 74-106 mg/dL Calcium Level 9.1 8.7-10.4 mg/dL Assessment 84-year-old female with a known history of hypertension, dyslipidemia, congestive heart failure, hypothyroidism, previous history of renal cancer status post nephrectomy presented to the hospital with a left hip pain status post fall found to have 1. Left hip contusion, no evidence of any acute fracture 2. Left hip pain 3. Hypertension 4. Hypothyroidism 5. Congestive heart failure currently not in exacerbation 6. History of renal cancer status post nephrectomy -pain meds and physical therapy, discharge plan to [facility] facility. Patient is currently agrees to current plan of care. Problems(with codes): (1) History of fall (2) Contusion of left hip Plan discussed with: Patient Date of Service: Jun 26, 2025 Billing Provider: CAYDEN ROSENBERG MD Common Visit Codes: NOT BILLABLE CAYDEN ROSENBERG MD Jun 26, 2025 14:17
[2025-06-26] MEDS: SODIUM CHLORIDE 0.9% 500 ML IV ONE (15:31)
[2025-06-26] MEDS: CARVEDILOL 3.125 MG TAB PO SCH (15:36)
[2025-06-26] MEDS: GABAPENTIN 300 MG CAP PO SCH (15:36)
[2025-06-26] MEDS: HYDROcodone-ACET 10/325MG TAB PO SCH (15:50)
[2025-06-26 16:30] VITALS: BP 106/34; PULSE 69; RESP 12; TEMP 97.4; O2SAT 97
[2025-06-26] MEDS ORDERED: GABAPENTIN 300 MG CAP PO SCH (22:00)
[2025-06-27] MEDS ORDERED: HYDROcodone-ACET 10/325MG TAB PO SCH (10:00)
[2025-06-27] MEDS ORDERED: ALLOPURINOL 100 MG TAB PO SCH (10:00)
[2025-06-27] MEDS ORDERED: CARVEDILOL 3.125 MG TAB PO SCH (10:00)
== END 2025-06-26 16:47 | disposition hospice, inpatient (51) ==
LOC: EDUNIT# 11:12 → EDBD 11:12 → ER 11:20
DX: S70.02XA Contusion of left hip, initial encounter (principal); Z79.899 Other long term (current) drug therapy; Z90.49 Acquired absence of other specified parts of digestive tract; W19.XXXA Unspecified fall, initial encounter; Y93.89 Activity, other specified; Y92.89 Other specified places as the place of occurrence of the external cause; Y99.8 Other external cause status
CPT/HCPCS: 36415; 73700; 80048; 85025; 85610; 85730; 96361; 96374; 96375; 99285; J2270; J2405; J7030